=== PATIENT | female | born 1955 | race Two or more races ===

== ENCOUNTER 2025-02-02 12:31 | Inpatient (IN) | payer MEDICARE ==
[2025-02-02] VITALS (9 sets, daily range): BP systolic 134–203; BP diastolic 59–90; TEMP 97.5–98.6; O2SAT 97–99
[~2025-02-02] VITALS: Ht 152.4 cm; Wt 104.7 kg
[2025-02-02 14:43] LABS: BASO # 0.0 10^3/uL (0.0-0.2); BASO % 0.4 % (0.0-1.0); EOS # 0.2 10^3/uL (0.0-0.5); EOS % 2.9 % (0.0-3.0); LYMPH # 1.6 10^3/uL (1.5-5.0); LYMPH % 29.3 % (24.0-44.0); MONO # 0.5 10^3/uL (0.0-0.8); MONO % 8.8 % (2.0-8.0); NEUTROPHILS # 3.2 10^3/uL (1.5-8.5); NEUTROPHILS % 58.1 % (36.0-66.0); PLATELET COUNT, AUTOMATED 143 10^3/uL (150-450)
[2025-02-02 15:04] LABS: INR 1.16
[2025-02-02 15:08] LABS: ESTIMATED AVERAGE GLUCOSE 255.0 MG/DL (60-110)
[2025-02-02 15:12] LABS: CK-MB VALUE MASS 7.6 NG/ML (<3.6)
[2025-02-02 15:15] LABS: CPK CREATINE PHOSPHOKINASE 286.0 U/L (34-145); MB/CK RELATIVE INDEX 2.65 (< OR =4)
[2025-02-02 15:16] LABS: ALT/SGPT 14.0 U/L (7.0-40); AST/SGOT 22.0 U/L (<34); CALCIUM LEVEL 8.6 MG/DL (8.3-10.6); CARBON DIOXIDE LEVEL 24.0 MMOL/L (20-31); CHLORIDE LEVEL 102.0 MMOL/L (98-107); CREATININE FOR GFR 0.94 MG/DL (0.55-1.30); GLOMERULAR FILTRATION RATE 66.5 (>45); MAGNESIUM LEVEL 1.6 MG/DL (1.8-2.4); POTASSIUM SERUM 4.4 MMOL/L (3.5-5.1); SODIUM LEVEL 135.0 MMOL/L (136-145)
[2025-02-02 15:18] LABS: FREE T4 1.32 NG/DL (0.89-1.76)
[2025-02-02] MEDS ORDERED: ISOVUE-370 76% 100 ML VIAL As Ordered ONE (15:18)
[2025-02-02 15:24] LABS: KETONE, URINE AUTO RFX NEGATIVE (NEGATIVE); LEUKOCYTE ESTERASE UR AUTO RFX NEGATIVE (NEGATIVE); NITRITE, URINE AUTO RFX NEGATIVE (NEGATIVE); RBC, URINE AUTO RFX 0 /HPF (0-3); SQUAM EPITHELIAL CELL UR AURFX 0 /HPF (0-6); WBC, URINE AUTO RFX 1 /HPF (0-3)
[2025-02-02 15:39] LABS: IRON (FE) 12.0 UG/DL (50-170); PERCENT SATURATION 3.1 % (13.2-45.0)
[2025-02-02 15:42] LABS: VITAMIN B12 LEVEL 289.0 PG/ML (211-911)
[2025-02-02] MEDS ORDERED: HOME MED LIST COMPLETE! XX SCH (16:05)
[2025-02-02] MEDS ORDERED: DEXTROSE 50% 50 ML SYRINGE IV PRN (17:20)
[2025-02-02] MEDS ORDERED: GLUCAGON INJ 1 MG VIAL SC PRN (17:20)
[2025-02-02] MEDS ORDERED: GLUCOSE 4 GM CHEW PO PRN (17:20)
[2025-02-02] MEDS: INSULIN LISPRO (NovoLOG) PER UNIT SC SCH (18:22)
[2025-02-02] MEDS: ACETAMINOPHEN 325 MG TAB PO PRN (18:23)
[2025-02-02 18:41] LABS: CK-MB VALUE MASS 6.2 NG/ML (<3.6)
[2025-02-02 18:51] LABS: CPK CREATINE PHOSPHOKINASE 255.0 U/L (34-145); MB/CK RELATIVE INDEX 2.43 (< OR =4)
[2025-02-02] MEDS: FUROSEMIDE 40 MG/4 ML VIAL IV ONE (19:37)
[2025-02-02] MEDS: DOCUSATE SODIUM 100 MG CAPSULE PO SCH (21:00)
[2025-02-02] MEDS: MAG SULF 1GM/100ML (MAG RUN) 1 GM in IV 1 EA IV ONE (22:18)
[2025-02-02] MEDS: LanTUS (INSULIN GLARGINE INJ) 1 UNITS/0.01 ML SC SCH (22:19)
[2025-02-03 00:41] LABS: PLATELET COUNT, AUTOMATED 150 10^3/uL (150-450)
[2025-02-03 08:18] LABS: BASO # 0.0 10^3/uL (0.0-0.2); BASO % 0.5 % (0.0-1.0); EOS # 0.2 10^3/uL (0.0-0.5); EOS % 3.4 % (0.0-3.0); LYMPH # 2.1 10^3/uL (1.5-5.0); LYMPH % 33.5 % (24.0-44.0); MONO # 0.6 10^3/uL (0.0-0.8); MONO % 9.1 % (2.0-8.0); NEUTROPHILS # 3.3 10^3/uL (1.5-8.5); NEUTROPHILS % 53.0 % (36.0-66.0); PLATELET COUNT, AUTOMATED 138 10^3/uL (150-450)
[2025-02-03 08:41] LABS: CALCIUM LEVEL 8.6 MG/DL (8.3-10.6); CARBON DIOXIDE LEVEL 26.0 MMOL/L (20-31); CHLORIDE LEVEL 102.0 MMOL/L (98-107); CREATININE FOR GFR 0.97 MG/DL (0.55-1.30); GLOMERULAR FILTRATION RATE 64.1 (>45); POTASSIUM SERUM 4.1 MMOL/L (3.5-5.1); SODIUM LEVEL 139.0 MMOL/L (136-145)
[2025-02-03] MEDS: FUROSEMIDE 40 MG/4 ML VIAL IV SCH (09:06)
[2025-02-03] MEDS: amLODIPine 5 MG TAB PO SCH (09:06)
[2025-02-03 12:00] VITALS: BP 170/72; O2SAT 98
[2025-02-03 14:45] VITALS: BP 197/82
[2025-02-03] MEDS: IRON SUCROSE 500 MG in NS 250 ML IV ONE (15:20)
[2025-02-03 16:10] VITALS: BP 159/73
[2025-02-03 20:00] VITALS: BP 132/76; TEMP 96.9; O2SAT 98
[2025-02-04 04:00] VITALS: BP 132/63; TEMP 98.3; O2SAT 95
[2025-02-04 06:58] LABS: BASO # 0.0 10^3/uL (0.0-0.2); BASO % 0.4 % (0.0-1.0); EOS # 0.3 10^3/uL (0.0-0.5); EOS % 3.6 % (0.0-3.0); LYMPH # 2.4 10^3/uL (1.5-5.0); LYMPH % 34.5 % (24.0-44.0); MONO # 0.7 10^3/uL (0.0-0.8); MONO % 9.5 % (2.0-8.0); NEUTROPHILS # 3.6 10^3/uL (1.5-8.5); NEUTROPHILS % 51.3 % (36.0-66.0); PLATELET COUNT, AUTOMATED 140 10^3/uL (150-450)
[2025-02-04 07:11] LABS: CALCIUM LEVEL 8.7 MG/DL (8.3-10.6); CARBON DIOXIDE LEVEL 29.0 MMOL/L (20-31); CHLORIDE LEVEL 101.0 MMOL/L (98-107); CREATININE FOR GFR 1.18 MG/DL (0.55-1.30); GLOMERULAR FILTRATION RATE 50.6 (>45); POTASSIUM SERUM 4.0 MMOL/L (3.5-5.1); SODIUM LEVEL 140.0 MMOL/L (136-145)
[2025-02-04 08:42] VITALS: BP 170/75
[2025-02-04] MEDS: FUROSEMIDE 40 MG/4 ML VIAL IV SCH (08:44)
[2025-02-04 12:00] VITALS: BP 142/72; TEMP 98.3; O2SAT 98
[2025-02-04 13:28] VITALS: BP 135/47
[2025-02-04] MEDS ORDERED: GLUC1TES2 XX (13:43)
[2025-02-04] MEDS ORDERED: GLIP10TA PO (13:43)
[2025-02-04] MEDS ORDERED: BASA100I SC (13:43)
[2025-02-04] MEDS ORDERED: ALCOPAD25 TOP (13:43)
[2025-02-04] MEDS ORDERED: METF850T4 PO (13:43)
[2025-02-04] MEDS ORDERED: GABA-284 PO (13:43)
[2025-02-04] MEDS ORDERED: PEN-61 SC (13:43)
[2025-02-04] MEDS ORDERED: LANC30MI XX (13:43)
[2025-02-04] MEDS ORDERED: BLOOKIT21 XX (13:43)
[2025-02-04 20:00] VITALS: BP 141/65; TEMP 97.1; O2SAT 98
[2025-02-04] MEDS: RAMELTEON 8 MG TAB PO SCH (20:14)
[2025-02-05 04:00] VITALS: BP 149/66; TEMP 98.2; O2SAT 100
[2025-02-05 06:21] LABS: BASO # 0.1 10^3/uL (0.0-0.2); BASO % 0.7 % (0.0-1.0); EOS # 0.3 10^3/uL (0.0-0.5); EOS % 3.9 % (0.0-3.0); LYMPH # 2.3 10^3/uL (1.5-5.0); LYMPH % 34.7 % (24.0-44.0); MONO # 0.6 10^3/uL (0.0-0.8); MONO % 9.0 % (2.0-8.0); NEUTROPHILS # 3.4 10^3/uL (1.5-8.5); NEUTROPHILS % 50.5 % (36.0-66.0); PLATELET COUNT, AUTOMATED 148 10^3/uL (150-450)
[2025-02-05 06:38] LABS: CALCIUM LEVEL 8.4 MG/DL (8.3-10.6); CARBON DIOXIDE LEVEL 26.0 MMOL/L (20-31); CHLORIDE LEVEL 102.0 MMOL/L (98-107); CREATININE FOR GFR 1.22 MG/DL (0.55-1.30); GLOMERULAR FILTRATION RATE 48.6 (>45); POTASSIUM SERUM 3.8 MMOL/L (3.5-5.1); SODIUM LEVEL 140.0 MMOL/L (136-145)
[2025-02-05] MEDS ORDERED: POTA1TAB21 PO (08:05)
[2025-02-05] MEDS ORDERED: FERR325T3 PO (08:05)
[2025-02-05] MEDS ORDERED: LASI40TA9 PO (08:05)
[2025-02-05] MEDS ORDERED: COLA100C5 PO (08:05)
[2025-02-05 08:35] VITALS: BP 183/78
[2025-02-05 12:00] VITALS: BP 155/81; TEMP 98; O2SAT 99
[2025-02-05] MEDS ORDERED: LISI10TA22 PO (20:26)
== END 2025-02-05 16:00 | disposition home or self-care (01) | DRG 812 ==
LOC: M ED 12:31 → M ED INP 17:11 → M MS4PR 02-03 17:35
PROVIDERS: ADMIT Internal Medicine Nephrology; ATTEND Internal Medicine Nephrology
PROC: 30233N1 Transfusion of Nonautologous Red Blood Cells into Peripheral Vein, Percutaneous Approach (ICD-10-PCS; principal; 2025-02-02)
DX: D64.9 Anemia, unspecified (principal); Z68.42 Body mass index [BMI] 45.0-49.9, adult; R18.8 Other ascites; Q61.5 Medullary cystic kidney; K74.60 Unspecified cirrhosis of liver; E66.01 Morbid (severe) obesity due to excess calories; E11.42 Type 2 diabetes mellitus with diabetic polyneuropathy; E03.9 Hypothyroidism, unspecified; E61.1 Iron deficiency; I10 Essential (primary) hypertension; H40.9 Unspecified glaucoma; G43.909 Migraine, unspecified, not intractable, without status migrainosus; Z90.79 Acquired absence of other genital organ(s); Z90.49 Acquired absence of other specified parts of digestive tract; Z98.41 Cataract extraction status, right eye; Z98.42 Cataract extraction status, left eye; Z79.891 Long term (current) use of opiate analgesic

== ENCOUNTER → 2025-02-18 | Outpatient (REF) | payer MEDICARE ==
[~2025-02-18] MED LIST: ALCOPAD25 TOP; BASA100I SC; BLOOKIT21 XX; COLA100C5 PO; FERR325T3 PO; GABA-284 PO; GLIP10TA PO; GLUC1TES2 XX; LANC30MI XX; LASI40TA9 PO; LISI10TA22 PO; METF850T4 PO; PEN-61 SC; POTA1TAB21 PO
[2025-02-18 17:00] LABS: ALT/SGPT 34.0 U/L (7.0-40); AST/SGOT 44.0 U/L (<34); CALCIUM LEVEL 9.2 MG/DL (8.3-10.6); CARBON DIOXIDE LEVEL 28.0 MMOL/L (20-31); CHLORIDE LEVEL 102.0 MMOL/L (98-107); CREATININE FOR GFR 1.13 MG/DL (0.55-1.30); GLOMERULAR FILTRATION RATE 53.3 (>45); POTASSIUM SERUM 4.3 MMOL/L (3.5-5.1); SODIUM LEVEL 141.0 MMOL/L (136-145)
[2025-02-18 17:01] LABS: BASO # 0.0 10^3/uL (0.0-0.2); BASO % 0.7 % (0.0-1.0); EOS # 0.2 10^3/uL (0.0-0.5); EOS % 3.9 % (0.0-3.0); LYMPH # 1.9 10^3/uL (1.5-5.0); LYMPH % 31.9 % (24.0-44.0); MONO # 0.4 10^3/uL (0.0-0.8); MONO % 7.5 % (2.0-8.0); NEUTROPHILS # 3.3 10^3/uL (1.5-8.5); NEUTROPHILS % 55.7 % (36.0-66.0); PLATELET COUNT, AUTOMATED 252 10^3/uL (150-450)
== END ==
LOC: M LAB REF 16:21
PROVIDERS: ATTEND Family Medicine Addiction Medicine
DX: D64.9 Anemia, unspecified (principal)

== ENCOUNTER → 2025-04-05 | Outpatient (REF) | payer MEDICARE ==
[2025-04-05 15:51] LABS: ALT/SGPT 35.0 U/L (7.0-40); AST/SGOT 42.0 U/L (<34); CALCIUM LEVEL 8.8 MG/DL (8.3-10.6); CARBON DIOXIDE LEVEL 28.0 MMOL/L (20-31); CHLORIDE LEVEL 104.0 MMOL/L (98-107); CHOLESTEROL LEVEL 170.0 MG/DL (<200); CHOLESTEROL RISK RATIO 4.54 (<5); CREATININE FOR GFR 1.01 MG/DL (0.55-1.30); GLOMERULAR FILTRATION RATE 61.0 (>45); LDL CHOLESTEROL 88.6 MG/DL (<100); NON-HDL-C 132.6 MG/DL; POTASSIUM SERUM 4.3 MMOL/L (3.5-5.1); SODIUM LEVEL 137.0 MMOL/L (136-145); TRIGLYCERIDES LEVEL 220.0 MG/DL (<150)
[2025-04-05 16:08] LABS: ESTIMATED AVERAGE GLUCOSE 163.0 MG/DL (60-110)
== END ==
LOC: M LAB REF 14:35
PROVIDERS: ATTEND Family Medicine Addiction Medicine
DX: I10 Essential (primary) hypertension (principal)

== ENCOUNTER → 2025-04-12 | Outpatient (REF) | payer MEDICARE ==
[2025-04-12 15:06] LABS: APPEARANCE, URINE HAZY (CLEAR); BACTERIA, URINE AUTO NEGATIVE (NEGATIVE); BILIRUBIN, URINE AUTO NEGATIVE (NEGATIVE); BLOOD, URINE BLOOD 1+ (NEGATIVE); GLUCOSE, URINE (UA) AUTO 1+ mg/dL (NEGATIVE); KETONE, URINE AUTO NEGATIVE (NEGATIVE); LEUKOCYTE ESTERASE, URINE AUTO NEGATIVE (NEGATIVE); MUCUS, URINE SMALL (NEGATIVE); NITRITE, URINE AUTO NEGATIVE (NEGATIVE); PROTEIN, URINE AUTO 3+ mg/dL (NEGATIVE); RBC, URINE AUTO 0 /HPF (0-3); SPECIFIC GRAVITY URINE AUTO 1.014 (1.002-1.035); SQUAMOUS EPITHELIAL CELL UR AU 2 /HPF (0-6); UROBILINOGEN, URINE AUTO 0.2 mg/dL (0.0-2.0); WBC, URINE AUTO 0 /HPF (0-3)
== END ==
LOC: M LAB REF 14:16
PROVIDERS: ATTEND Family Medicine Addiction Medicine
DX: R10.9 Unspecified abdominal pain (principal)

== ENCOUNTER → 2025-05-11 | Outpatient (REF) | payer MEDICARE ==
[2025-05-11 12:44] LABS: APPEARANCE, URINE HAZY (CLEAR); BACTERIA, URINE AUTO 1+ (NEGATIVE); BILIRUBIN, URINE AUTO NEGATIVE (NEGATIVE); BLOOD, URINE BLOOD 1+ (NEGATIVE); GLUCOSE, URINE (UA) AUTO 1+ mg/dL (NEGATIVE); KETONE, URINE AUTO NEGATIVE (NEGATIVE); LEUKOCYTE ESTERASE, URINE AUTO NEGATIVE (NEGATIVE); NITRITE, URINE AUTO NEGATIVE (NEGATIVE); PROTEIN, URINE AUTO 2+ mg/dL (NEGATIVE); RBC, URINE AUTO 0 /HPF (0-3); SPECIFIC GRAVITY URINE AUTO 1.012 (1.002-1.035); SQUAMOUS EPITHELIAL CELL UR AU 3 /HPF (0-6); UROBILINOGEN, URINE AUTO 0.2 mg/dL (0.0-2.0); WBC, URINE AUTO 1 /HPF (0-3)
== END ==
LOC: M LAB REF 11:59
PROVIDERS: ATTEND Family Medicine Addiction Medicine
DX: R10.9 Unspecified abdominal pain (principal)

== ENCOUNTER → 2025-06-09 | Outpatient (REF) | payer MEDICARE, MEDICAID ==
[2025-06-09 15:21] LABS: BASO # 0.0 10^3/uL (0.0-0.2); BASO % 0.5 % (0.0-1.0); EOS # 0.3 10^3/uL (0.0-0.5); EOS % 3.7 % (0.0-3.0); LYMPH # 2.3 10^3/uL (1.5-5.0); LYMPH % 30.2 % (24.0-44.0); MONO # 0.5 10^3/uL (0.0-0.8); MONO % 6.4 % (2.0-8.0); NEUTROPHILS # 4.5 10^3/uL (1.5-8.5); NEUTROPHILS % 58.7 % (36.0-66.0); PLATELET COUNT, AUTOMATED 158 10^3/uL (150-450)
== END ==
LOC: M LAB REF 14:30
PROVIDERS: ATTEND Family Medicine Addiction Medicine
DX: D64.9 Anemia, unspecified (principal)